=== PATIENT | male | born 2000 | race Caucasian/White ===

== ENCOUNTER 2018-05-04 10:53 | Emergency (ER) | payer OTHER ==
[2018-05-04 11:05] VITALS: BP 127/94
--- NOTE | 2018-05-04 11:23 | EDPHY ---
H & P Time Seen by Provider: 05/04/18 10:59 HPI/ROS: CHIEF COMPLAINT: Sore throat HISTORY OF PRESENT ILLNESS: 18-year-old immunocompetent male complaining of 5 days of sore throat, cough. Today is Sunday. He was seen at [facility] on Sunday started on azithromycin after negative strep testing. He went back to [facility] yesterday and was given a prescription for Pen-VK. He comes to the ER today concerned that the symptoms have not resolved after less than 24 hr of Pen-VK. He has also been experiencing nonproductive cough and otalgia. He denies: Change in voice, fever, chills, chest pain, dyspnea, back pain, abdominal pain, rash, flank pain. PRIMARY CARE PROVIDER: REVIEW OF SYSTEMS: 10 systems reviewed and negative with the exception of the elements mentioned in the history of present illness PAST MEDICAL & SURGICAL HISTORY: immunocompetent SOCIAL HISTORY:Student PHYSICAL EXAM (Prior to examination, patient consented to physical exam, hands were washed and my usual and customary physical exam procedures followed) 1) GENERAL: Well-developed, well-nourished, alert and oriented. Appears to be in no acute distress. 2) HEAD: Normocephalic, atraumatic 3) HEENT: Pupils equal, round, reactive to light bilaterally. Sclera anicteric. Oropharynx: No trismus no drooling, bilaterally enlarged, symmetrical, exudate of tonsils with no pointing of the uvula. No evidence of peritonsillar abscess. No hot potato voice. Ears bilaterally with normal tympanic membranes. No evidence of otitis media or otitis externa 4) NECK: Full range of motion, no meningeal signs. no adenopathy. 5) LUNGS: Clear auscultation bilaterally, no wheezes, no rhonchi, no retractions. 6) HEART: Regular rate and rhythm, no murmur, no heave, no gallop. 7) ABDOMEN: No guarding, no splenomegaly, no rebound, no focal tenderness, negative McBurney's, negative Rose's, negative Rovsing's, negative peritoneal sign, 8) MUSCULOSKELETAL: Moving all extremities, no focal areas of tenderness, no obvious trauma. No peripheral edema or discoloration. 9) BACK: No CVA tenderness, no midline vertebral tenderness, no fluctuance, no step-off, no obvious trauma, no visual or palpable abnormality. 10) SKIN: No rash, no petechiae. 11) Psychiatric: Patient is oriented X 3, there is no agitation. DIFFERENTIAL DIAGNOSIS: In no particular order, my differential diagnosis includes, but is not limited to, strep pharyngitis, viral pharyngitis, peritonsillar abscess, retropharyngeal abscess or plegmon, mononucleosis, meningitis, Lemierre syndrome. Smoking Status: Never smoked Constitutional: Initial Vital Signs Temperature (C) 36.7 C 05/04/18 11:03 Heart Rate 63 05/04/18 11:03 Respiratory Rate 16 05/04/18 11:03 Blood Pressure 127/94 H 05/04/18 11:03 O2 Sat (%) 97 05/04/18 11:03 O2 Delivery Mode Room Air Allergies/Adverse Reactions: No Known Allergies Allergy (Unverified 02/04/18 14:08) Home Medications: Medication Instructions Recorded Amoxicillin Trihydrate [Amoxil] 500 mg PO TID 10 Days cap 02/04/18 Ondansetron Odt [Zofran Odt 4 mg 4 mg PO Q4 PRN #12 tab 02/04/18 (*)] Tylenol 02/04/18 MDM/Departure - [facility] ED Course/Re-evaluation: Patient appears well, doubt peritonsillar abscess. The patient has been on less than 24 hr with Pen-VK. I recommend continue this. Do not think that diagnostic studies or change in medication indicated at this time. He will be given dose of oral Decadron in the ER. Given ENT for low-up on Sunday to ( today is Sunday). My Usual and customary ENT precautions instructions provided. I saw this patient independently based on established practice protocols. Care of patient under supervision of secondary supervising physician Dr Mena . - Depart Disposition: Home, Routine, Self-Care Clinical Impression: Strep pharyngitis Condition: Good Instructions: Strep Throat (ED) Additional Instructions: Return to the ER immediately if you cannot swallow, have drooling, fevers, neck stiffness, cannot open your jaw, or any other symptoms that concern you. Referrals: Yanna,Khloe, PAC [Physician [employer]] - 05/06/18
[2018-05-04] MEDS ORDERED: DEXAMETHASONE 4 MG TAB PO ONE (11:25)
== END 2018-05-04 11:32 | disposition home or self-care (01) ==
DX: J02.0 Streptococcal pharyngitis (principal)

== ENCOUNTER 2018-12-20 15:35 | Emergency (ER) | payer OTHER | END 2018-12-20 16:28 | disposition home or self-care (01) ==